=== PATIENT | female | born 1955 | race Hispanic/Latino ===

== ENCOUNTER 2019-12-05 23:53 | Emergency (ER) | payer BC ==
[2019-12-06] MEDS ORDERED: Ondansetron PF 4 MG/2 ML Vial ONE (00:26)
[2019-12-06] MEDS ORDERED: Ketorolac Tromethamine 30 MG/ML VIAL ONE (00:26)
[2019-12-06 00:29] LABS: Bilirubin Negative (Negative); Blood, Urine Negative (Negative); Clarity Clear (Clear); Glucose, Urine (Dipstick) 100 mg/dL (Negative); Ketone, Urine Negative (Negative); Leukocyte Negative Leu/uL (Negative); Nitrite Negative (Negative); Protein, Urine (Dipstick) Negative (Neg-Trace); Specific Gravity, Urine 1.013 (1.002-1.036); Urobilinogen Normal mg/dL (Less than 2); pH, Urine 6.5 (5.0-9.0)
[2019-12-06 00:44] LABS: #Eosinphils 0.1 thou/uL (0.0-0.7); #Lymphocytes 3.5 thou/uL (1.20-3.40); #Monocytes 0.6 thou/uL (0.11-0.59); #Neutrophils 5.9 thou/uL (1.40-6.50); %Basophils 0.2 % (0.0-1.0); %Eosinophils 1.3 % (0.0-10.0); %Lymphocytes 34.4 % (21.0-51.0); %Monocytes 6.3 % (0.0-10.0); %Neutrophils 57.9 % (42.0-75.0); Hemoglobin 13.5 g/dL (12.0-16.0); Mean Corpuscular HGB CONC 34.2 g/dL (32.0-36.0); Mean Corpuscular Hemoglobin 30.9 pg (27.0-31.0); Mean Corpuscular Volume 90.4 fL (78.0-98.0); Mean Platelet Volume 8.1 fL (7.4-10.4); Platelet Count 289 thou/uL (130-400); RBC Distribution Width 12.2 % (11.5-14.5); Red Blood Cell (RBC) Count 4.36 mill/uL (4.20-5.40); White Blood Cell (WBC) Count 10.2 thou/uL (4.8-10.8)
[2019-12-06 00:59] LABS: ALT (SGPT) 18 U/L (8-55); AST (SGOT) 17 U/L (5-34); Albumin 4.4 g/dL (3.4-4.8); Alkaline Phosphatase 121 U/L (40-110); Anion Gap 16 mmol/L (10-20); BUN (Urea Nitrogen) 14 mg/dL (9.8-20.1); Bilirubin, Total 0.5 mg/dL (0.2-1.2); Calc. Creatinine Clearance 0 mL/min (70-130); Calcium 9.2 mg/dL (7.8-10.44); Carbon Dioxide 23 mmol/L (23-31); Chloride 100 mmol/L (98-107); Estimated GFR-MDRD 75; Globulin 2.8 g/dL (2.4-3.5); Glucose 207 mg/dL (80-115); Potassium 4.1 mmol/L (3.5-5.1); Protein, Total 7.2 g/dL (6.0-8.3); Sodium 135 mmol/L (136-145)
--- NOTE | 2019-12-06 07:42 | CT ---
PRELIMINARY REPORT/[facility]/EMERGENCY AFTER HOURS PROCEDURE: EXAM: CT Abdomen and Pelvis Without Intravenous Contrast CLINICAL HISTORY: Pt reports l sided flank pain x3 days. pt reports a constant pain that has gotten worse today. TECHNIQUE: Axial computed tomography images of the abdomen and pelvis without intravenous contrast. CONTRAST: None. COMPARISON: 10/12/2012. FINDINGS: LUNG BASES: No basilar airspace consolidation or pleural effusion. LIVER: The liver is enlarged measuring 18.3 cm in length. 1.1 cm hypodense lesion in the right lobe of the liver, stable since the prior exam. GALLBLADDER AND BILE DUCTS: Unremarkable. No calcified stone. No ductal dilation. PANCREAS: Unremarkable. SPLEEN: Unremarkable. ADRENAL GLANDS: Unremarkable. KIDNEYS, URETERS, AND BLADDER: Unremarkable. No hydronephrosis or nephrolithiasis. No ureteral or bladder calculi. STOMACH AND BOWEL: No obstruction. No wall thickening. No CT evidence of colitis or acute diverticulitis. Colonic diver ticulosis. APPENDIX: The appendix is surgically absent with a clip of the cecum. PERITONEUM: No free fluid. No free air. LYMPH NODES: No lymphadenopathy. REPRODUCTIVE: Unremarkable as visualized. VASCULATURE: No aortic aneurysm. ABDOMINAL WALL AND SOFT TISSUES: Unremarkable. BONES: No fracture or suspicious osseous abnormality. IMPRESSION: No acute intra-abdominal or pelvic abnormality. No identified urinary tract calculus. Colonic diverticulosis with nodes of diverticulitis. Hepatomegaly. Stable nonspecific lesion in the right lobe of the liver likely representing a benign lesion. ELECTRONICALLY SIGNED BY: Suraj Hagan MD Dec 06, 2019 1:08:54 AM CDT This report is intended for review by the ordering physician only, in accordance of law. If you recei ve this report in error, please call [facility] at [phone]. FINAL REPORT EMERGENCY AFTER HOURS CT ABDOMEN AND PELVIS PERFORMED WITHOUT CONTRAST ENHANCEMENT: Date: 12/06/2019 HISTORY: Left-sided flank pain x3 days. History of an appendectomy. COMPARISON: 10/12/2012 study. FINDINGS: The lung bases are clear of any infiltrative process. There is a hypodensity within the right lobe of the liver. It is stable in appearance as compared to the 2012 study and may represent a cyst. The spleen, pancreas, and gallbladder regions are unremarkab le. Right and left adrenal glands, and right and left kidneys are normal in size and appearance. There is no renal or ureteral calculi. There is no significant periaortic or mesenteric adenopathy. A moderat e amount of stool is present within the colon. There are some mild diffuse diverticulosis changes wit hout inflammatory process. Post appendectomy changes are noted. No pelvic lymphadenopathy or mass. Diverticular changes are slightly more pronounced in the sigmoid r egion. No significant bony findings. IMPRESSION: 1. No evidence of renal or ureteral calculi. 2. Colonic diverticulosis. 3. Stable hypodensity within the right lobe of the liver, which could represent a small cyst or othe r benign lesion given the stability since the 2013 study. Report in agreement with the preliminary report issued by [facility]. POS: [facility] [place]
== END 2019-12-06 01:47 | disposition home or self-care (01) ==
LOC: ERS 23:53
DX: R10.9 Unspecified abdominal pain (principal); R30.0 Dysuria; E03.9 Hypothyroidism, unspecified; E11.9 Type 2 diabetes mellitus without complications; E78.5 Hyperlipidemia, unspecified; I10 Essential (primary) hypertension; Z79.84 Long term (current) use of oral hypoglycemic drugs; Z79.899 Other long term (current) drug therapy
CPT/HCPCS: 74176; 80053; 81003; 85025; 96374; 96375; J1885; J2405

== ENCOUNTER 2019-12-09 07:20 | Emergency (ER) | payer BC ==
[2019-12-09 08:06] LABS: Bilirubin Negative (Negative); Blood, Urine Negative (Negative); Clarity Clear (Clear); Glucose, Urine (Dipstick) Greater than 1000 mg/dL (Negative); Ketone, Urine 10 mg/dL (Negative); Leukocyte Negative Leu/uL (Negative); Nitrite Negative (Negative); Protein, Urine (Dipstick) Negative (Neg-Trace); Specific Gravity, Urine 1.026 (1.002-1.036); Urobilinogen Normal mg/dL (Less than 2)
--- NOTE | 2019-12-09 08:06 | RAD ---
EXAM: 2 views of the left hip HISTORY: Left hip pain COMPARISON: None FINDINGS: 2 views of the left hip shows no evidence of acute fracture or dislocation. No degenerative changes are seen. No soft tissue swelling is present. IMPRESSION: No evidence of acute osseous abnormality.
[2019-12-09] MEDS ORDERED: Dicyclomine 20 MG TAB ONE (09:08)
[2019-12-09] MEDS ORDERED: Ketorolac Tromethamine 30 MG/ML VIAL ONE (09:08)
[2019-12-09] MEDS ORDERED: Ondansetron PF 4 MG/2 ML Vial ONE (09:08)
[2019-12-09 09:28] LABS: ALT (SGPT) 15 U/L (8-55); AST (SGOT) 18 U/L (5-34); Albumin 4.3 g/dL (3.4-4.8); Alkaline Phosphatase 105 U/L (40-110); Anion Gap 14 mmol/L (10-20); BUN (Urea Nitrogen) 10 mg/dL (9.8-20.1); Bilirubin, Total 0.5 mg/dL (0.2-1.2); Calc. Creatinine Clearance 0 mL/min (70-130); Calcium 8.8 mg/dL (7.8-10.44); Carbon Dioxide 23 mmol/L (23-31); Chloride 100 mmol/L (98-107); Estimated GFR-MDRD 83; Globulin 2.9 g/dL (2.4-3.5); Glucose 253 mg/dL (80-115); Potassium 4.6 mmol/L (3.5-5.1); Protein, Total 7.2 g/dL (6.0-8.3); Sodium 132 mmol/L (136-145)
[2019-12-09 09:32] LABS: Band 2 % (5-11); Eosinophils 1 % (0-10); Hemoglobin 13.8 g/dL (12.0-16.0); Lymphocytes 30 % (21-51); MDiff Complete? YES; Mean Corpuscular HGB CONC 33.5 g/dL (32.0-36.0); Mean Corpuscular Hemoglobin 30.8 pg (27.0-31.0); Mean Corpuscular Volume 91.9 fL (78.0-98.0); Mean Platelet Volume 10.2 fL (7.4-10.4); Monocytes 3 % (0-10); Neutrophil 63 % (42-75); Platelet Clumps MODERATE; Platelet Count 207 thou/uL (130-400); Platelet Morphology Comment Appears Adequate; Polychromasia SLIGHT = 2-3 cells (100X) (0-2/hpf); RBC Distribution Width 12.2 % (11.5-14.5); Red Blood Cell (RBC) Count 4.49 mill/uL (4.20-5.40); White Blood Cell (WBC) Count 8.3 thou/uL (4.8-10.8)
--- NOTE | 2019-12-09 10:15 | RAD ---
EXAM: Single view of the abdomen HISTORY: Left flank pain. No BM for 4 days COMPARISON: None FINDINGS: Single view of the abdomen shows a nonspecific, nonobstructive bowel gas pattern. Moderate stool retention is seen in the colon without significant stool seen in the rectal vault. No suspicious calcifications are seen. The bones are unremarkable. IMPRESSION: Moderate stool retention in the colon.
== END 2019-12-09 10:42 | disposition home or self-care (01) ==
LOC: ERS 07:20
DX: K59.00 Constipation, unspecified (principal); I10 Essential (primary) hypertension; E11.9 Type 2 diabetes mellitus without complications; E78.5 Hyperlipidemia, unspecified; E03.9 Hypothyroidism, unspecified; Z79.84 Long term (current) use of oral hypoglycemic drugs; Z79.899 Other long term (current) drug therapy
CPT/HCPCS: 74018; 80053; 81003; 83605; 84484; 85025; 96361; 96374; 96375; J1885; J2405